=== PATIENT | male | born 1955 | race African-American/Black ===

== ENCOUNTER 2021-10-30 14:56 | Inpatient (IN) | payer OTHER ==
[2021-10-30] MEDS ORDERED: DICYCLOMINE HCL 10 MG CAPSULE PO PRN (17:15)
[2021-10-30] MEDS ORDERED: IBUPROFEN 400 MG TABLET (FP) PO PRN (17:15)
[2021-10-30] MEDS ORDERED: LOPERAMIDE HCL 2 MG CAPSULE PO PRN (17:15)
[2021-10-30] MEDS ORDERED: MAGNESIUM HYDROX 2400MG/30ML ORAL SUSPENSION 30 ML CUP PO PRN (17:15)
[2021-10-30] MEDS ORDERED: MAGNESIUM CITRATE 300 ML BOTTLE PO PRN (17:15)
[2021-10-30] MEDS ORDERED: NICOTINE 7 MG/24 HOURS TOPICAL PATCH TD PRN (17:15)
[2021-10-30] MEDS ORDERED: ACETAMINOPHEN 325 MG TABLET (FP) PO PRN ×2 (17:15)
[2021-10-30] MEDS ORDERED: MENTHOL/PHENOL 1 EACH UD MM PRN (17:15)
[2021-10-30] MEDS ORDERED: BISMUTH SUBSALICYLATE 524 MG/30 ML PO PRN (17:15)
[2021-10-30] MEDS ORDERED: MAG HYDROX/AL HYDROX/SIMETH 30 ML UNIT-DOSE CUP PO PRN (17:15)
[2021-10-30] MEDS ORDERED: NICOTINE POLACRILEX 2 MG GUM BUC PRN (17:15)
[2021-10-30] MEDS ORDERED: ONDANSETRON *ODT* 4 MG TABLET SL PRN (17:15)
[2021-10-30 20:11] VITALS: BMI 20.9
[2021-10-30] MEDS ORDERED: diazePAM 5 MG TABLET ONE (20:30)
[2021-10-30] MEDS: diazePAM 5 MG TABLET PO PRN (20:33)
[2021-10-31] MEDS: THIAMINE HCL 100 MG TABLET (FP) PO SCH ×2 (08:03→22:30)
[2021-10-31] MEDS: diazePAM 5 MG TABLET PO SCH ×5 (08:16→22:30)
[2021-10-31] MEDS ORDERED: diazePAM 5 MG TABLET ONE ×2 (08:18→10:16)
[2021-10-31 09:58] LABS: HEMATOCRIT 40.6 % (35.4-49); HEMOGLOBIN 13.9 GM/dL (11.7-16.9); MCH 33.7 pg (25.7-33.7); MCHC 34.2 g/dl (32.0-35.9); MEAN CELL VOLUME 98.5 fl (80-96); MEAN PLT VOLUME 6.6 fl (7.5-11.1); PLATELET COUNT 278 10^3/uL (134-434); RBC 4.12 M/mm3 (4.00-5.60); RDW 12.6 % (11.9-15.9); WHITE BLOOD COUNT 5.9 K/mm3 (4.0-10.0)
[2021-10-31 10:06] LABS: BLOOD UREA NITROGEN 8.3 mg/dL (7-18); CALCIUM 9.4 mg/dL (8.5-10.1)
[2021-10-31 10:07] LABS: ALBUMIN 3.5 g/dl (3.4-5.0)
[2021-10-31 10:10] LABS: CREATININE 0.7 mg/dL (0.55-1.3)
[2021-10-31 10:11] LABS: BILIRUBIN,TOTAL 0.8 mg/dL (0.2-1); TOT PROT 6.3 g/dl (6.4-8.2)
[2021-10-31] MEDS: PRENATAL VITAMINS W/ FOLIC ACID TABLET (FP) PO SCH (10:22)
[2021-10-31 14:08] LABS: SARS-CoV-2 NAA Not Detected (Not Detected)
[2021-10-31] MEDS: hydrOXYzine PAMOATE 25 MG CAPSULE (FP) PO PRN ×2 (18:30→22:30)
[2021-10-31] MEDS: MELATONIN 5 MG TABLETS PO PRN (22:30)
[2021-11-01] MEDS: diazePAM 5 MG TABLET PO SCH ×3 (06:04→22:21)
[2021-11-01] MEDS: PRENATAL VITAMINS W/ FOLIC ACID TABLET (FP) PO SCH (10:51)
[2021-11-01] MEDS: diazePAM 5 MG TABLET PO PRN ×2 (10:52→18:02)
[2021-11-01] MEDS: hydrOXYzine PAMOATE 25 MG CAPSULE (FP) PO PRN (10:53)
[2021-11-01] MEDS: METHOCARBAMOL 500 MG TABLET PO PRN ×2 (13:38→22:21)
[2021-11-01] MEDS: MELATONIN 5 MG TABLETS PO PRN (22:21)
[2021-11-01] MEDS: THIAMINE HCL 100 MG TABLET (FP) PO SCH (22:21)
[2021-11-02] MEDS: diazePAM 5 MG TABLET PO SCH ×2 (06:02→18:01)
[2021-11-02] MEDS: diazePAM 5 MG TABLET PO PRN (10:33)
[2021-11-02] MEDS: PRENATAL VITAMINS W/ FOLIC ACID TABLET (FP) PO SCH (10:35)
[2021-11-02] MEDS: hydrOXYzine PAMOATE 25 MG CAPSULE (FP) PO PRN (22:27)
[2021-11-02] MEDS: THIAMINE HCL 100 MG TABLET (FP) PO SCH (22:27)
[2021-11-03] MEDS: diazePAM 5 MG TABLET PO ONE ×2 (06:09→06:13)
[2021-11-03] MEDS: hydrOXYzine PAMOATE 25 MG CAPSULE (FP) PO PRN (09:30)
[2021-11-03] MEDS: PRENATAL VITAMINS W/ FOLIC ACID TABLET (FP) PO SCH (09:31)
[2021-11-03 10:47] VITALS: BP 139/73; PULSE 93; TEMP 97.8
== END 2021-11-03 11:15 | disposition home or self-care (01) | DRG 897 ==
LOC: YASAS 14:56 → Y6N 10-31 10:33
PROVIDERS: ADMIT Allergy & Immunology; ATTEND Allergy & Immunology
PROC: HZ2ZZZZ Detoxification Services for Substance Abuse Treatment (ICD-10-PCS; principal; 2021-10-31)
DX: F10.230 Alcohol dependence with withdrawal, uncomplicated (principal); F17.210 Nicotine dependence, cigarettes, uncomplicated; I10 Essential (primary) hypertension
CPT/HCPCS: 36415; 80053; 85027; 86780; 87811; C9803-CS; U0003; U0005